=== PATIENT | female | born 1995 | race Caucasian/White ===

== ENCOUNTER 2017-09-20 13:04 | Emergency (ER) | payer MEDICAID ==
[~2017-09-20] VITALS: Ht 157.5 cm; Wt 68.9 kg
[~2017-09-20 13:04] MED LIST: PREN-234 PO; XANAX
[2017-09-20 13:08] VITALS: BP 127/76
[2017-09-20 14:02] LABS: BASOPHILS % (AUTO) 0.5 % (0.0-2.0); EOSINOPHILS # (AUTO) 0.1 K/uL (0-0.4); EOSINOPHILS % (AUTO) 1.8 % (0.0-4.0); HEMOGLOBIN 14.2 g/dL (12.0-16.0); LYMPHOCYTES # (AUTO) 2.4 K/uL (2.5-16.5); LYMPHOCYTES % (AUTO) 30.1 % (20.5-51.1); MEAN CORPUSCULAR HEMOGLOBIN 29 pg (27-31); MEAN CORPUSCULAR HGB CONC 34 g/dL (33-37); MEAN CORPUSCULAR VOLUME 86.7 fL (80-94); MONOCYTES # (AUTO) 0.4 K/uL (0.8-1.0); NEUTROPHILS % (AUTO) 62.6 % (42.2-75.2); PLATELET COUNT (AUTO) 255 K/uL (140-450); RED BLOOD CELL COUNT(AUTO) 4.84 MIL/uL (4.20-5.40); RED CELL DISTRIBUTION WIDTH 12.9 % (11.6-13.7); WHITE BLOOD COUNT (AUTO) 7.9 K/uL (4.8-10.8)
[2017-09-20 14:22] LABS: PROTHROMBIN TIME 11.3 secs (10.8-13.4)
[2017-09-20 14:43] LABS: APPEARANCE,URINE SL CLOUDY (CLEAR); BLOOD, URINE 3+ (NEGATIVE); COLOR,URINE YELLOW (YELLOW); LEUKOCYTE ESTERASE ,URINE NEGATIVE (NEGATIVE); NITRITE, URINE NEGATIVE (NEGATIVE); UGLUCOSE NEGATIVE (NEGATIVE)
[2017-09-20 14:46] LABS: BILIRUBIN,URINE NEGATIVE (NEGATIVE)
[2017-09-20 14:47] LABS: RBC,URINE >100 /HPF (0-5)
[2017-09-20 15:09] VITALS: BP 124/70
== END 2017-09-20 15:29 | disposition home or self-care (01) ==
LOC: MED 13:04
DX: N93.8 Other specified abnormal uterine and vaginal bleeding (principal); Z79.899 Other long term (current) drug therapy
CPT/HCPCS: 36415; 76830; 81001; 81025; 84702; 85025; 85610; 85730; 86886; 86900; 86901; 87086; 99285; Q0092

== ENCOUNTER 2018-08-28 11:24 | Emergency (ER) | payer MEDICAID ==
[~2018-08-28] VITALS: Ht 157.5 cm; Wt 69.4 kg
[2018-08-28 11:32] VITALS: BP 112/74
--- NOTE | 2018-08-28 11:34 | NUR ---
Janiya peterson in [facility] - 08/28/18 at 1153 by MMTHEM Patient ambulated to bed 2. RN evaluating patient at bedside.
--- NOTE | 2018-08-28 11:45 | NUR ---
Patient ambulated to bed 2. RN evaluating patient at bedside.
[2018-08-28] MEDS ORDERED: methylPREDNISolone SS 125 MG in WATER STERILE 2 ML IM ONE (12:20)
[2018-08-28] MEDS ORDERED: diphenhydrAMINE 50 MG/ML VIAL IM ONE (12:20)
[2018-08-28] MEDS ORDERED: hydrOXYzine HCL 25 MG TAB PO ONE (12:20)
[2018-08-28 13:24] VITALS: BP 106/63
--- NOTE | 2018-08-28 13:24 | NUR ---
Patient discharged with v/s stable. Written and verbal after care instructions given and explained. Patient alert, oriented and verbalized understanding of instructions. Ambulatory with steady gait. All questions addressed prior to discharge. ID band removed. Patient advised to follow up with PMD. Rx of atarax, prednisone given. Patient educated on indication of medication including possible reaction and side effects. Opportunity to ask questions provided and answered.
== END 2018-08-28 13:24 | disposition home or self-care (01) ==
LOC: MED 11:24
DX: L25.9 Unspecified contact dermatitis, unspecified cause (principal); Z79.899 Other long term (current) drug therapy
CPT/HCPCS: 96372; 99283; J1200; J2930

== ENCOUNTER 2019-07-01 14:34 | Emergency (ER) | payer MEDICAID, SELFPAY ==
[~2019-07-01] VITALS: Ht 157.5 cm; Wt 73.5 kg
--- NOTE | 2019-07-01 14:40 | NUR ---
Pt found in COVID tent. Pt with a mask in place. Interview/screening performed by myself with proper PPE, gown, mask, face shield and gloves in place. Triage performed outside in tent. Pt c/o chest pain, sore like pain since last night. Pt states "I feel like I can't catch my breath." Denies any cough, denies fever, denies recent travel.
[2019-07-01 14:44] VITALS: BP 113/72
--- NOTE | 2019-07-01 14:48 | NUR ---
PT TAKEN TO BED 11.
--- NOTE | 2019-07-01 14:55 | NUR ---
Dr Zaragoza at bedside
--- NOTE | 2019-07-01 14:56 | NUR ---
24/F presents ambulatory to ED, c/o pressure-like BL chest pain, intermittently x5 days. Pain is reproducible to touch. Pt denies fever/chills, cough/congestion, n/v/d. Pt awake and alert, skin normal color warm and dry, rr even and unlabored. Lung sounds clear BL. S1S2 present. Abd soft flat nontender. Hx cholecystectomy, cigarette smoking; denies alcohol/substance abuse, or extrenous activity.
[2019-07-01] MEDS ORDERED: IBUPROFEN 400 MG TAB PO ONE (15:05)
--- NOTE | 2019-07-01 15:15 | NUR ---
X-Ray at bedside.
--- NOTE | 2019-07-01 15:27 | NUR ---
PT RESTING IN BED COMFORTABLY
[2019-07-01 15:41] VITALS: BP 113/72
== END 2019-07-01 15:41 | disposition home or self-care (01) ==
LOC: EEVIPCON 14:34 → MED 14:34
DX: R07.89 Other chest pain (principal); F17.209 Nicotine dependence, unspecified, with unspecified nicotine-induced disorders; Z71.6 Tobacco abuse counseling; Z90.49 Acquired absence of other specified parts of digestive tract; Z79.899 Other long term (current) drug therapy
CPT/HCPCS: 71045; 99283; Q0092

== ENCOUNTER 2019-09-12 23:25 | Emergency (ER) | payer MEDICAID, SELFPAY ==
[~2019-09-12] VITALS: Ht 160 cm; Wt 77.1 kg
[2019-09-12 23:31] VITALS: BP 112/66
--- NOTE | 2019-09-12 23:41 | NUR ---
PT TAKEN TO BED 4
--- NOTE | 2019-09-12 23:50 | NUR ---
24 Y/O FEMALE PRESENTS TO ER WITH C/O NO SENSE OF TASTE OR SMELL X1 WEEK. HEADACHE/SINUS PRESSURE X 5 DAYS. HAD A COUGH X 3 DAYS TUES-FRI OF LAST WEEK. PT IS AFEBRILE, O2: 97% ON ROOM AIR, VSS, R/R EQUAL AND UNLABORED. DENIES VOMITIING, DIARRHEA, CHILLS, SWEATS. 8/10 HEADACHE PAIN. SIDE RAIL X1, BED IN LOW POSITION, WILL CONTINUE TO MONITOR. NKDA DENIES PMH
--- NOTE | 2019-09-12 23:59 | NUR ---
Dr. Barksdale examining patient.
[2019-09-13 00:11] VITALS: BP 112/66
--- NOTE | 2019-09-13 00:11 | NUR ---
Patient discharged with v/s stable. Written and verbal after care instructions given and explained. Patient alert, oriented and verbalized understanding of instructions. Ambulatory with steady gait. All questions addressed prior to discharge. ID band removed. Patient advised to follow up with PMD. Rx of FLONASE; MOTRIN; SUDAFED given. Patient educated on indication of medication including possible reaction and side effects. Opportunity to ask questions provided and answered.
== END 2019-09-13 00:11 | disposition home or self-care (01) ==
LOC: MED 23:25
DX: J32.9 Chronic sinusitis, unspecified (principal); F17.210 Nicotine dependence, cigarettes, uncomplicated; Z79.899 Other long term (current) drug therapy
CPT/HCPCS: 99283

== ENCOUNTER 2021-03-21 14:46 | Emergency (ER) | payer MEDICAID ==
[~2021-03-21] VITALS: Ht 157.5 cm; Wt 73.9 kg
[2021-03-21 15:24] VITALS: BP 135/56
[2021-03-21] MEDS ORDERED: ONDANSETRON 4 MG/2 ML VIAL IVP ONE (15:40)
[2021-03-21] MEDS ORDERED: MORPHINE SULFATE 4 MG/ML SYR IVP ONE ×2 (15:40→17:55)
[2021-03-21] MEDS ORDERED: NACL 0.9% 1,000 ML IV SCH (15:40)
[2021-03-21] MEDS ORDERED: ALUMINUM HYD/MAG/SIMETHICONE 30 ML, DICYCLOMINE HCL LIQUID 20 MG, LIDOCAINE VISCOUS 2% ... PO ONE ×3 (15:45)
--- NOTE | 2021-03-21 15:56 | NUR ---
26 y/o female c/o abd pain that started last night around 11pm, pt states she was seen at [facility] today and had imaging and labs and was told everything was normal. pt is still having pain. epigastric pain that radiates to back. denies dysuria, hematuria, vomiting or diarrhea. denies sob, cough, cp, fever, chills or sore throat. denies anyone else sick in the household. pt states pain is 8/10 at this time. skin is pink/warm/dry. bl lung bases clear, even and unlabored breathing. heart rate is even and normal. denies hematuria, dysuria, constipation. ermd made aware of pt status. pmh: denies nka med: tramadol hcl
[2021-03-21 16:00] LABS: BASOPHILS % (AUTO) 0.3 % (0.0-2.0); EOSINOPHILS % (AUTO) 0.3 % (0.0-4.0); HEMATOCRIT 40.3 % (36-48); HEMOGLOBIN 13.3 g/dL (12.0-16.0); LYMPHOCYTES % (AUTO) 13.7 % (20.5-51.1); MEAN CORPUSCULAR HEMOGLOBIN 30 pg (27-31); MEAN CORPUSCULAR HGB CONC 33 g/dL (33-37); MEAN CORPUSCULAR VOLUME 89.9 fL (80-94); MONOCYTES # (AUTO) 0.8 K/uL (0.8-1.0); MONOCYTES % (AUTO) 5.4 % (1.7-9.3); NEUTROPHILS # (AUTO) 11.6 K/uL (1.8-7.7); NEUTROPHILS % (AUTO) 80.3 % (42.2-75.2); PLATELET COUNT (AUTO) 302 K/uL (140-450); RED BLOOD CELL COUNT(AUTO) 4.48 MIL/uL (4.20-5.40); RED CELL DISTRIBUTION WIDTH 12.9 % (11.6-13.7); WHITE BLOOD COUNT (AUTO) 14.5 K/uL (4.8-10.8)
[2021-03-21 16:25] LABS: ANION GAP 15.4 (8-16); CARBON DIOXIDE 24.4 mmol/L (21-32); CREATININE 0.7 mg/dL (0.6-1.3); POTASSIUM 3.8 mmol/L (3.5-5.1); TOTAL BILIRUBIN 0.9 mg/dL (0.0-1.0)
--- NOTE | 2021-03-21 17:57 | NUR ---
pt ambulating with tech to imaging
[2021-03-21] MEDS ORDERED: ONDANSETRON 4 MG/2 ML VIAL ONE (18:40)
[2021-03-21] MEDS ORDERED: DICYCLOMINE HCL LIQUID 10 MG/5 ML UDC ONE (18:48)
[2021-03-21] MEDS ORDERED: ALUMINUM HYD/MAG/SIMETHICONE 30 ML UDC ONE (18:50)
--- NOTE | 2021-03-21 18:58 | NUR ---
pt unable to give urine at this time
--- NOTE | 2021-03-21 19:45 | NUR ---
REMAINS UNABLE TO GIVE UA. WATER GIVEN
[2021-03-21] MEDS ORDERED: ONDANSETRON 4 MG ODT PO ONE (20:10)
[2021-03-21] MEDS ORDERED: ACET-10509 PO (21:06)
[2021-03-21] MEDS ORDERED: ONDA-188 PO (21:06)
[2021-03-21] MEDS ORDERED: FAMO-90 PO (21:06)
[2021-03-21] MEDS ORDERED: CEPH-588 PO (21:07)
[2021-03-21 22:37] LABS: APPEARANCE,URINE CLEAR (CLEAR); BILIRUBIN,URINE NEGATIVE (NEGATIVE); BLOOD, URINE NEGATIVE (NEGATIVE); COLOR,URINE YELLOW (YELLOW); LEUKOCYTE ESTERASE ,URINE 1+ (NEGATIVE); NITRITE, URINE NEGATIVE (NEGATIVE); UGLUCOSE NEGATIVE (NEGATIVE)
[2021-03-21 22:46] LABS: RBC,URINE 0-5 /HPF (0-5)
[2021-03-21 23:02] VITALS: BP 111/59
--- NOTE | 2021-03-21 23:02 | NUR ---
d/c with VSS. d/c education given. opportunity to ask questions given and answered. rx of tylenol, keflex, pepcid and zofran given.
--- NOTE | 2021-03-28 15:51 | NUR ---
LATE ENTRY- NORMAL SALINE DISCONTINUED AT 2302.
== END 2021-03-21 23:02 | disposition home or self-care (01) ==
LOC: MED 14:46
DX: K29.20 Alcoholic gastritis without bleeding (principal); N39.0 Urinary tract infection, site not specified; Z90.49 Acquired absence of other specified parts of digestive tract; Z79.899 Other long term (current) drug therapy
CPT/HCPCS: 36415; 74176; 76856; 80053; 81001; 81025; 83690; 84703; 85025; 87086; 96361; 96374; 96375; 99285; J2270; J2405; J7030; Q0162

== ENCOUNTER 2021-09-03 22:45 | Emergency (ER) | payer MEDICAID ==
[~2021-09-03] VITALS: Ht 157.5 cm; Wt 74.8 kg
[~2021-09-03 22:45] MED LIST changes: +ACET-10509 PO; +CEPH-588 PO; +FAMO-90 PO; +ONDA-188 PO
[2021-09-03 23:32] VITALS: BP 121/88
--- NOTE | 2021-09-03 23:35 | NUR ---
PATIENT TO LOBBY
--- NOTE | 2021-09-04 01:29 | NUR ---
called for patient no answer
--- NOTE | 2021-09-04 01:35 | NUR ---
called for patient no answer
--- NOTE | 2021-09-04 01:35 | NUR ---
PATIENT LEFT WITHOUT BEING SEEN BY DR. WATKINS. NO FURTHER CARE PROVIDED FOR PATIENT.
== END 2021-09-04 01:29 | disposition left against medical advice (07) ==
LOC: MED 22:45
DX: R07.9 Chest pain, unspecified (principal); Z53.21 Procedure and treatment not carried out due to patient leaving prior to being seen by health care provider

== ENCOUNTER 2022-07-04 21:46 | Emergency (ER) | payer MEDICAID ==
[~2022-07-04] VITALS: Ht 152.4 cm; Wt 70.3 kg
[2022-07-04 21:50] VITALS: BP 121/85
--- NOTE | 2022-07-04 22:06 | NUR ---
PT TO CHD
--- NOTE | 2022-07-04 22:18 | NUR ---
PT TO BED 4
[2022-07-04] MEDS ORDERED: ALUMINUM HYD/MAG/SIMETHICONE 30 ML UDC PO ONE (23:10)
[2022-07-04] MEDS ORDERED: ONDANSETRON 4 MG ODT PO ONE (23:10)
[2022-07-04] MEDS ORDERED: FAMOTIDINE 20 MG TAB PO ONE (23:10)
[2022-07-04 23:41] LABS: BASOPHILS # (AUTO) 0.1 K/uL (0.00-0.22); BASOPHILS % (AUTO) 0.7 % (0.0-2.0); EOSINOPHILS # (AUTO) 0.1 K/uL (0-0.4); EOSINOPHILS % (AUTO) 1.2 % (0.0-4.0); HEMATOCRIT 37.1 % (36-48); HEMOGLOBIN 12.3 g/dL (12.0-16.0); LYMPHOCYTES # (AUTO) 2.1 K/uL (2.5-16.5); LYMPHOCYTES % (AUTO) 21.1 % (20.5-51.1); MEAN CORPUSCULAR HEMOGLOBIN 29 pg (27-31); MEAN CORPUSCULAR HGB CONC 33 g/dL (33-37); MEAN CORPUSCULAR VOLUME 88.7 fL (80-94); MONOCYTES # (AUTO) 0.6 K/uL (0.8-1.0); MONOCYTES % (AUTO) 5.7 % (1.7-9.3); NEUTROPHILS % (AUTO) 71.3 % (42.2-75.2); PLATELET COUNT (AUTO) 267 K/uL (140-450); RED BLOOD CELL COUNT(AUTO) 4.18 MIL/uL (4.20-5.40); RED CELL DISTRIBUTION WIDTH 13.1 % (11.6-13.7); WHITE BLOOD COUNT (AUTO) 9.8 K/uL (4.8-10.8)
[2022-07-04 23:52] LABS: ALBUMIN 3.7 g/dL (3.4-5.0); ANION GAP 10.8 (8-16); ASPARTATE AMINOTRANSFERASE 68 U/L (15-37); CARBON DIOXIDE 26.4 mmol/L (21-32); CHLORIDE 110 mmol/L (98-107); CREATININE 0.7 mg/dL (0.6-1.3); GFR ARICAN-AMERICAN 128 mL/min (>90); GLUCOSE 79 mg/dL (74-106); LIPASE 148 U/L (73-393); POTASSIUM 3.2 mmol/L (3.5-5.1); SODIUM SERUM 144 mmol/L (136-145); TOTAL BILIRUBIN 0.2 mg/dL (0.0-1.0); UREA NITROGEN, BLOOD 8 mg/dL (7-18)
--- NOTE | 2022-07-05 00:30 | NUR ---
PT RESTING, AWAITING RESULTS. AT BEDSIDE. PT DENIES ANY PAIN OR NEEDS AT THIS TIME.
[2022-07-05 00:40] LABS: APPEARANCE,URINE CLEAR (CLEAR); BILIRUBIN,URINE NEGATIVE (NEGATIVE); BLOOD, URINE NEGATIVE (NEGATIVE); COLOR,URINE YELLOW (YELLOW); LEUKOCYTE ESTERASE ,URINE NEGATIVE (NEGATIVE); NITRITE, URINE NEGATIVE (NEGATIVE); PH,URINE 6.5 (5.0-9.0); UGLUCOSE NEGATIVE (NEGATIVE)
[2022-07-05] MEDS ORDERED: FAMO-90 PO (01:37)
[2022-07-05 01:52] VITALS: BP 120/68
== END 2022-07-05 01:52 | disposition home or self-care (01) ==
LOC: MED 21:46
DX: K21.9 Gastro-esophageal reflux disease without esophagitis (principal); R07.9 Chest pain, unspecified; Z79.899 Other long term (current) drug therapy; Z90.49 Acquired absence of other specified parts of digestive tract
CPT/HCPCS: 36415; 71045; 80053; 81003; 83690; 84484; 85025; 93005; 99285; Q0092; Q0162

== ENCOUNTER 2023-08-28 06:45 | Emergency (ER) | payer MEDICAID ==
[~2023-08-28] VITALS: Ht 157.5 cm; Wt 72.6 kg
[2023-08-28 07:00] VITALS: BP 138/74; PULSE 89; RESP 16; TEMP 98.2; O2SAT 99
[2023-08-28] MEDS: NACL 0.9% 1,000 ML IV SCH (07:46)
[2023-08-28] MEDS: KETOROLAC 30 MG/ML VIAL IVP ONE (07:47)
[2023-08-28] MEDS: METOCLOPRAMIDE 10 MG/2 ML INJ VIAL IVP ONE (07:50)
[2023-08-28 08:48] LABS: BASOPHILS % (AUTO) 0.6 % (0.0-2.0); EOSINOPHILS # (AUTO) 0.7 K/uL (0-0.4); EOSINOPHILS % (AUTO) 8.3 % (0.0-4.0); HEMATOCRIT 38.1 % (36-48); HEMOGLOBIN 13.1 g/dL (12.0-16.0); LYMPHOCYTES % (AUTO) 12.2 % (20.5-51.1); MEAN CORPUSCULAR HEMOGLOBIN 30 pg (27-31); MEAN CORPUSCULAR HGB CONC 34 g/dL (33-37); MEAN CORPUSCULAR VOLUME 87.7 fL (80-94); MONOCYTES # (AUTO) 0.6 K/uL (0.8-1.0); MONOCYTES % (AUTO) 6.7 % (1.7-9.3); NEUTROPHILS # (AUTO) 6.2 K/uL (1.8-7.7); NEUTROPHILS % (AUTO) 72.2 % (42.2-75.2); PLATELET COUNT (AUTO) 263 K/uL (140-450); RED BLOOD CELL COUNT(AUTO) 4.35 MIL/uL (4.20-5.40); RED CELL DISTRIBUTION WIDTH 13.3 % (11.6-13.7); WHITE BLOOD COUNT (AUTO) 8.5 K/uL (4.8-10.8)
[2023-08-28 08:49] LABS: APPEARANCE,URINE CLEAR (CLEAR); BILIRUBIN,URINE NEGATIVE (NEGATIVE); BLOOD, URINE TRACE-I (NEGATIVE); COLOR,URINE YELLOW (YELLOW); LEUKOCYTE ESTERASE ,URINE 2+ (NEGATIVE); NITRITE, URINE NEGATIVE (NEGATIVE); PH,URINE 6.5 (5.0-9.0); PROTEIN,URINE NEGATIVE (NEGATIVE); UGLUCOSE NEGATIVE (NEGATIVE); UROBILINOGEN,URINE 0.2 EU/dL (0.2 - 1)
[2023-08-28 08:59] LABS: ANION GAP 13.1 (8-16); CALCIUM 8.9 mg/dL (8.5-10.1); CARBON DIOXIDE 23.6 mmol/L (21-32); CREATININE 0.6 mg/dL (0.6-1.3); POTASSIUM 3.7 mmol/L (3.5-5.1)
[2023-08-28 08:59] LABS: BACTERIA,URINE FEW /HPF (None Seen); RBC,URINE 0-5 /HPF (0-5); SQUAMOUS EPITHELIAL CELL,UR 4-10 (MOD) /LPF (0-3 (FEW))
[2023-08-28 09:05] LABS: ALBUMIN 3.7 g/dL (3.4-5.0); BILIRUBIN,DIRECT 0.1 mg/dL (0.0-0.3); TOTAL BILIRUBIN 0.6 mg/dL (0.0-1.0); TOTAL PROTEIN, SERUM 7.4 g/dL (6.4-8.2)
[2023-08-28] MEDS: NACL 0.9% 1,000 ML IV ONE (10:21)
[2023-08-28] MEDS ORDERED: IBUP-2213 PO (10:37)
[2023-08-28] MEDS ORDERED: ONDA-188 SL (10:37)
[2023-08-28] MEDS ORDERED: SULF-59 PO (10:37)
[2023-08-28 12:15] VITALS: BP 103/63; PULSE 75; RESP 16; TEMP 98.1; O2SAT 99
== END 2023-08-28 12:15 | disposition home or self-care (01) ==
LOC: MED 06:45
DX: N39.0 Urinary tract infection, site not specified (principal); K21.9 Gastro-esophageal reflux disease without esophagitis; Z79.1 Long term (current) use of non-steroidal anti-inflammatories (NSAID); Z79.899 Other long term (current) drug therapy
CPT/HCPCS: 36415; 74176; 80048; 80076; 81001; 81025; 83690; 85025; 87086; 96361; 96374; 96375; 99285; J1885; J2765

== ENCOUNTER 2023-12-08 16:55 | Emergency (ER) | payer MEDICAID ==
[~2023-12-08] VITALS: Ht 157.5 cm; Wt 77.1 kg
[~2023-12-08 16:55] MED LIST changes: -ACET-10509 PO; +ACET500T99 PO; +IBUP-2213 PO; +ONDA-188 SL; +SULF-59 PO
[2023-12-08 17:10] VITALS: BP 117/58; PULSE 76; RESP 18; TEMP 98.3; O2SAT 99
[2023-12-08 17:49] LABS: APPEARANCE,URINE CLEAR (CLEAR); BILIRUBIN,URINE NEGATIVE (NEGATIVE); BLOOD, URINE NEGATIVE (NEGATIVE); COLOR,URINE YELLOW (YELLOW); LEUKOCYTE ESTERASE ,URINE NEGATIVE (NEGATIVE); NITRITE, URINE NEGATIVE (NEGATIVE); PH,URINE 7.5 (5.0-9.0); PROTEIN,URINE NEGATIVE (NEGATIVE); UGLUCOSE NEGATIVE (NEGATIVE); UROBILINOGEN,URINE 0.2 EU/dL (0.2 - 1)
[2023-12-08 18:15] LABS: BASOPHILS # (AUTO) 0.3 K/uL (0.00-0.22); BASOPHILS % (AUTO) 2.2 % (0.0-2.0); EOSINOPHILS # (AUTO) 0.1 K/uL (0-0.4); EOSINOPHILS % (AUTO) 1.2 % (0.0-4.0); HEMATOCRIT 38.6 % (36-48); HEMOGLOBIN 12.9 g/dL (12.0-16.0); LYMPHOCYTES # (AUTO) 2.2 K/uL (2.5-16.5); LYMPHOCYTES % (AUTO) 19.3 % (20.5-51.1); MEAN CORPUSCULAR HEMOGLOBIN 29 pg (27-31); MEAN CORPUSCULAR HGB CONC 33 g/dL (33-37); MEAN CORPUSCULAR VOLUME 87.9 fL (80-94); MONOCYTES # (AUTO) 0.5 K/uL (0.8-1.0); MONOCYTES % (AUTO) 4.1 % (1.7-9.3); NEUTROPHILS # (AUTO) 8.2 K/uL (1.8-7.7); NEUTROPHILS % (AUTO) 73.2 % (42.2-75.2); PLATELET COUNT (AUTO) 280 K/uL (140-450); RED BLOOD CELL COUNT(AUTO) 4.39 MIL/uL (4.20-5.40); WHITE BLOOD COUNT (AUTO) 11.2 K/uL (4.8-10.8)
[2023-12-08 18:32] LABS: ANION GAP 11.2 (8-16); CARBON DIOXIDE 28.1 mmol/L (21-32); CREATININE 0.8 mg/dL (0.6-1.3); POTASSIUM 3.3 mmol/L (3.5-5.1)
[2023-12-08 18:53] LABS: ALBUMIN 3.9 g/dL (3.4-5.0); BILIRUBIN,DIRECT 0.1 mg/dL (0.0-0.3); TOTAL BILIRUBIN 0.4 mg/dL (0.0-1.0)
[2023-12-08 19:41] VITALS: O2SAT 99
[2023-12-09] MEDS ORDERED: ACET500T99 PO (00:32)
[2023-12-09 00:37] VITALS: BP 103/57; PULSE 73; RESP 14; TEMP 97.7; O2SAT 98
== END 2023-12-09 00:37 | disposition home or self-care (01) ==
LOC: MED 16:55
DX: O20.0 Threatened abortion (principal); Z3A.01 Less than 8 weeks gestation of pregnancy; Z90.49 Acquired absence of other specified parts of digestive tract; Z79.899 Other long term (current) drug therapy
CPT/HCPCS: 36415; 76817; 80048; 80076; 81003; 83690; 84702; 85025; 86886; 86900; 86901; 99284; Q0092